=== PATIENT | female | born 1955 | race Caucasian/White ===

== ENCOUNTER 2020-12-19 06:09 | Inpatient (IN) | payer OTHER ==
[~2020-12-19] VITALS: Ht 165.1 cm; Wt 61.4 kg
[2020-12-19] MEDS ORDERED: DIPHENHYDRAMINE 50 MG/ML, 1ML IVPush ONE (06:30)
[2020-12-19] MEDS ORDERED: SODIUM CHLORIDE FLUSH 10ML SYR IVF ONE (06:30)
[2020-12-19] MEDS ORDERED: EPINEPHRINE 1 MG/ML, 1ML IM ONE (06:30)
[2020-12-19] MEDS ORDERED: methylPREDNISolone SOD SUCC 125 MG/2 ML IVPush ONE (06:30)
[2020-12-19] MEDS ORDERED: FAMOTIDINE 20 MG/2 ML IVPush ONE (06:30)
[2020-12-19] MEDS ORDERED: EPINEPHRINE 1 MG/ML, 1ML ONE (06:34)
[2020-12-19] MEDS ORDERED: FAMOTIDINE 20 MG/2 ML ONE (06:34)
[2020-12-19] MEDS ORDERED: DIPHENHYDRAMINE 50 MG/ML, 1ML ONE ×2 (06:34→16:35)
[2020-12-19] MEDS ORDERED: methylPREDNISolone SOD SUCC 125 MG/2 ML ONE ×3 (06:34→20:05)
--- NOTE | 2020-12-19 06:45 | NUR ---
REPORT FROM SUJIT BAEZ
--- NOTE | 2020-12-19 06:45 | NUR ---
ERP AT BS
--- NOTE | 2020-12-19 06:52 | NUR ---
report to Shine BECKETT
--- NOTE | 2020-12-19 07:10 | NUR ---
PT MOVED TO TR02 TO BE IN VIEW OF ERP. PT STATES SHE FEELS SOME SWELLING HAS DECREASED BUT STILL HARD TO TALK. DARLENE. LAB AT BS
[2020-12-19 07:23] LABS: BASOPHILS % (AUTO) 1 % (0-1); EOSINOPHILS % (AUTO) 2 % (1-7); LYMPHOCYTES % (AUTO) 28 % (22-44); MEAN CORPUSCULAR HEMOGLOBIN 37.1 pg (27.0-34.8); MEAN PLATELET VOLUME 6.9 fL (7.4-10.4); MONOCYTES % (AUTO) 10 % (2-9); NEUTROPHILS % (AUTO) 59 % (42-75); PLATELET COUNT 340 x10^3/uL (130-400); RED BLOOD COUNT 3.28 x10^6/uL (3.82-5.3); RED CELL DISTRIBUTION WIDTH 12.5 % (9.6-15.2)
[2020-12-19] MEDS ORDERED: ETOMIDATE 20 MG/10 ML IVPush ONE (07:30)
[2020-12-19] MEDS ORDERED: SUCCINYLCHOLINE 20 MG/ML, 10ML IVPush ONE (07:30)
[2020-12-19 07:32] LABS: ALBUMIN 3.7 g/dL (3.4-5.0); ANION GAP 10 mmol/L (5-15); CALCIUM 9.2 mg/dL (8.5-10.1); CHLORIDE 98 mmol/L (98-107); CREATININE 1.05 mg/dL (0.55-1.02)
[2020-12-19] MEDS ORDERED: VECURONIUM 10 MG IVPush ONE (08:00)
[2020-12-19] MEDS: SODIUM CHLORIDE 0.9% 1,000 ML IV SCH ×2 (08:00→18:18)
[2020-12-19] MEDS ORDERED: POLYETHYLENE GLYCOL 17 GM PACKET PO PRN (08:00)
[2020-12-19] MEDS ORDERED: ACETAMINOPHEN 325 MG TABLET PO PRN (08:00)
[2020-12-19] MEDS ORDERED: morphine SULFATE 10 MG/ML, 1ML IVPush PRN (08:00)
[2020-12-19] MEDS ORDERED: PROPOFOL 100 ML IV PRN (08:00)
[2020-12-19] MEDS ORDERED: MIDAZOLAM 1 MG/ML, 5ML IVPush ONE (08:00)
[2020-12-19] MEDS ORDERED: BISACODYL 10 MG SUPP PR PRN (08:00)
[2020-12-19] MEDS ORDERED: LABETALOL 5MG/ML, 20ML IVPush PRN (08:00)
[2020-12-19] MEDS ORDERED: LORazepam 2 MG/ML, 1ML IVPush PRN (08:00)
[2020-12-19] MEDS ORDERED: ONDANSETRON 2MG/ML, 2ML IVPush PRN (08:00)
[2020-12-19] MEDS: methylPREDNISolone SOD SUCC 125 MG/2 ML IVPush SCH ×3 (08:00→20:07)
[2020-12-19 08:31] VITALS: BP 116/70
[2020-12-19] MEDS ORDERED: LORazepam 2 MG/ML, 1ML ONE ×2 (08:42→10:36)
[2020-12-19 08:46] VITALS: BP 133/90
--- NOTE | 2020-12-19 08:50 | NUR ---
TIME INSERT AT 0745: PT INTUBATED BY MD BIRMINGHAM RELATED TO ANGIOEDEMA BY LISINOPRIL. TONGUE SWOLLEN, PT AIRWAY COMPRIMISED. ANESTESIOLOGIST AT BEDSIDE FOR ASSISTANCE. RT, RN SYED, PROPOFOL GTT READY 100 SUCC 20 ETOMIDATE
--- NOTE | 2020-12-19 08:52 | NUR ---
PANDA INSERTED, RESTRAINTS IN PLACE, FFP INFUSING. SUCTION NEEDED PT TOLERATING SEDATION W PROPOFAL GTT. 10 MG MIDAZOLAM TOTAL 1 MG ATIVAN FOR AGITATION
[2020-12-19] MEDS: FAMOTIDINE 20 MG/2 ML IVPush SCH (09:00)
[2020-12-19] MEDS ORDERED: VECURONIUM 10 MG ONE (09:13)
[2020-12-19 09:15] VITALS: BP 150/88
[2020-12-19] MEDS ORDERED: PROPOFOL 100 ML IV ONE ×2 (09:28→15:27)
[2020-12-19 09:29] VITALS: BP 150/88
--- NOTE | 2020-12-19 09:30 | NUR ---
FFP TRANSFUSION COMPLETE. PT TOLERATED, TONGUE SEVERELY SWOLLEN, SUCTIONING FREQUENTLY NG INSERTED, GREEN BILE SUCTIONED AT INSERTION CONTINUE TO MONITOR. VSS
[2020-12-19] MEDS ORDERED: ENOXAPARIN 40 MG/0.4 ML ONE (09:37)
[2020-12-19] MEDS: ENOXAPARIN 40 MG/0.4 ML SQ SCH (09:42)
--- NOTE | 2020-12-19 09:50 | NUR ---
TIME INSERT AT 0800 VENT SETTING PEAK 5 PEEP 5.0 TIDAL VOLUME 450 40% O2
--- NOTE | 2020-12-19 10:40 | NUR ---
PT AT 50MCG PROPOFOL GTT, PT IS STILL AGITATED IN [facility]. RN CALLED MD, AWAITING CALL BACK TO DISCUSS FURTHER ORDERS. PUSHED ATIVAN PRN FOR AGITATION
--- NOTE | 2020-12-19 10:50 | NUR ---
DISCUSSED W MD JOSÉ TO START VERSED GTT, SINCE PT IS AGITATED WITH PROPOFOL 50 MCG/KG/MIN GTT. PHARMACY TO SEND. VSS.
--- NOTE | 2020-12-19 11:12 | NUR ---
ORAL CARE GIVEN AND SUCTION GIVEN FREQUENTLY, TONGUE IS STILL EDEMETOUS AND PORTRUDING.
[2020-12-19] MEDS: MIDAZOLAM HCL 50 MG in SODIUM CHLORIDE 0.9% 40 ML IV PRN ×2 (11:19→18:16)
--- NOTE | 2020-12-19 11:26 | NUR ---
VERSED GTT STARTED. PT IS TOLERATING AND RELAXING MORE. LESS MOVEMENT IN EXTREMITIES NOTICED. VSS
[2020-12-19] MEDS ORDERED: MORPHINE SULFATE 4 MG/ML, 1ML ONE (11:46)
--- NOTE | 2020-12-19 12:21 | NUR ---
PT TRANSFERRED TO HOSPITAL BED FOR COMFORT W STAFF ASSISTANCE. PT APPEAR COMFORTABLE. LESS AGITATION NOTICED. ORAL CARE PERFORMED, MOISTURIZER APPLIED TO LIPS AND TONGUE. FAMILY VISITED, ANSWERED ALL QUESTIONS AND GAVE EDUCATION.
--- NOTE | 2020-12-19 13:05 | NUR ---
TASK RN: DR VELAZQUEZ AT BEDSIDE, PT ASSESSMENT REVIEWED. SEDATION DISCUSSED, PT CURRENTLY ON PROPOFOL GTT @ 20MCG/KG/MIN AND VERSED 5MG/HR WITH GOOD RESPONSE AND PT APPEARS COMFORTABLE. DR VELAZQUEZ CONFIRMED THAT OK TO USE BOTH PROPOFOL AND VERSED TO KEEP PT COMFORTABLE.
--- NOTE | 2020-12-19 13:46 | NUR ---
SBAR RPT REC'D AND ASSUMED PT CARE. PT RESTING COMFORTABLY ON HOSPITAL BED. TOLLERATING VENT WELL, PIP = 15, SEDATED WITH PROPOFOL AND VERSED NOTED. PT REPOSITIONED TO LEFT SIDE WITH PILLOWS PLACED FOR COMFORT.
--- NOTE | 2020-12-19 14:54 | NUR ---
Q-CARE ORAL CARE COMPLETED AND MOUTH MOISTURIZER APPLIED. PT REPSITINED TO RIGHT SIDE. PT TOLLERATED ACTIVITY WELL, RTN TO SLEEPING WHEN NOT STIMULATED.
--- NOTE | 2020-12-19 15:09 | NUR ---
PROPOFOL GTT WAS D/C BY DR BIRMINGHAM WHEN VERSED GTT ORDERED. PER PRIOR CONVERSATIONS WITH DR VELAZQUEZ, OK TO SEDATE PT WITH BOTH PROPOFOL AND VERSED.
--- NOTE | 2020-12-19 15:29 | NUR ---
SEQUENTIAL STOCKINGS ORDERED.
--- NOTE | 2020-12-19 15:29 | NUR ---
DR VERDIN AT BEDSIDE, SBAR RPT PROVIDED AND QUESTIONS ANSWERED. CLARIFIED PLAN TO SEDATE WITH BOTH PROPOFOL AND VERSED.
[2020-12-19] MEDS ORDERED: PHARMACY MAY ADJ FOR RENAL FX MC SCH (16:00)
[2020-12-19] MEDS ORDERED: LIDOCAINE-MPF 1%, 2ML ENDO PRN (16:00)
[2020-12-19] MEDS ORDERED: FENTANYL PF 100 MCG/2ML ONE ×2 (16:08→23:45)
[2020-12-19] MEDS: FENTANYL PF 100 MCG/2ML IVPush PRN ×3 (16:09→23:47)
--- NOTE | 2020-12-19 16:11 | NUR ---
PT RESTLESS, ELEVATED BP AND HR. PT MED WITH 25MCG FENTANYL AND REPOSITIONED TO RIGHT SIDE. WILL MONITOR FOR EFFECT.
--- NOTE | 2020-12-19 16:19 | NUR ---
ORAL CARE COMPLETED, MOISTURIZER APPLIED TO PROTRUDING TONGUE
--- NOTE | 2020-12-19 16:34 | NUR ---
SEQUENTIAL STOCKINGS PLACED BI-LAT LE AND MACHINE WORKING.
--- NOTE | 2020-12-19 16:34 | NUR ---
PT APPEARS MORE RELAXED, HR, BP AND RR IMPROVED FOLLOWING FENTANYL ADMIN
[2020-12-19] MEDS: DIPHENHYDRAMINE 50 MG/ML, 1ML IVPush SCH (16:36)
[2020-12-19] MEDS: PROPOFOL 100 ML IV PRN (16:37)
--- NOTE | 2020-12-19 17:45 | NUR ---
Al PATTEN. PH [phone] AT BEDSIDE, PT ASSESSMENT, POC DISCUSSED AND QUESTIONS ANSWERED. PT'S BELONGINGS GIVEN TO EARLINE TO TAKE HOME.
--- NOTE | 2020-12-19 19:08 | NUR ---
TASK RN: PT SEEMS COMFORTABLE, VSS. NO NEW INTERVENTIONS AT THIS TIME.
--- NOTE | 2020-12-19 19:23 | NUR ---
MORENOAR RPT TO SUJIT VELASQUEZ
--- NOTE | 2020-12-19 19:55 | NUR ---
PT RESTING ON HOSPITAL BED. ALL LINES IN PLACES, NO DISTRESS. ORAL CARE PROVIDED BY RT
--- NOTE | 2020-12-19 19:57 | NUR ---
PT REPOSITIONED ONTO RIGHT SIDE
--- NOTE | 2020-12-19 22:41 | NUR ---
PT RESTING ON HOSPITAL BED. PT REPOSITIONS HERSELF FREQUENTLY. VSS.
--- NOTE | 2020-12-19 23:41 | NUR ---
PT WAKING UP FREQUENTLY. PULLING AT PANDA/IV LINES, TRYING TO REMOVE RESTRAINTS. INCREASED PROPOFOL AND VERSED.
[2020-12-20] MEDS ORDERED: MIDAZOLAM 1 MG/ML, 5ML ONE (00:43)
[2020-12-20] MEDS ORDERED: ETOMIDATE 20 MG/10 ML ONE (00:43)
[2020-12-20] MEDS ORDERED: SUCCINYLCHOLINE 20 MG/ML, 10ML ONE (00:43)
[2020-12-20] MEDS ORDERED: PROPOFOL 10 MG/ML, 100ML IV ONE (00:43)
--- NOTE | 2020-12-20 00:44 | NUR ---
pt tolerating fentanyl very well. has not woken up or pulled at lines since I gave 50mcg ivp
[2020-12-20] MEDS: FENTANYL PF 100 MCG/2ML IVPush PRN ×7 (02:12→23:35)
[2020-12-20] MEDS ORDERED: PROPOFOL 100 ML IV ONE ×4 (02:15→23:28)
--- NOTE | 2020-12-20 02:23 | NUR ---
TASK RN: PT RESTING IN [facility], ADEQUATELY SEDATED W PROPOFOL AND VERSED GTT. BP/SPO2/ECG MONITORING IN PLACE. VENTILATED, SPO2 >90%. NORMOTENSIVE; NSR ON MONITOR. NOTABLE ORAL EDEMA. BUE SOFT RESTRAINTS IN PLACE WITH GOOD DISTAL CAP REFILL.
--- NOTE | 2020-12-20 04:11 | NUR ---
PT RESTING QUIETLY ON HOSPITAL BED. ALL LINES IN PLACE. VSS.
[2020-12-20] MEDS ORDERED: methylPREDNISolone SOD SUCC 125 MG/2 ML ONE ×4 (04:19→20:11)
[2020-12-20] MEDS: methylPREDNISolone SOD SUCC 125 MG/2 ML IVPush SCH ×4 (04:22→20:13)
[2020-12-20] MEDS: SODIUM CHLORIDE 0.9% 1,000 ML IV SCH (04:22)
--- NOTE | 2020-12-20 04:30 | NUR ---
pt repositioned to opposite side because pt has been repositioning herself less.
[2020-12-20 05:39] LABS: BASOPHILS % (AUTO) 0 % (0-1); EOSINOPHILS % (AUTO) 0 % (1-7); LYMPHOCYTES % (AUTO) 8 % (22-44); MEAN CORPUSCULAR HEMOGLOBIN 37.4 pg (27.0-34.8); MEAN PLATELET VOLUME 7.3 fL (7.4-10.4); MONOCYTES % (AUTO) 3 % (2-9); NEUTROPHILS % (AUTO) 89 % (42-75); PLATELET COUNT 297 x10^3/uL (130-400); RED BLOOD COUNT 3.15 x10^6/uL (3.82-5.3); RED CELL DISTRIBUTION WIDTH 12.8 % (9.6-15.2)
[2020-12-20 05:42] LABS: CHLORIDE 100 mmol/L (98-107)
[2020-12-20 05:51] LABS: ALANINE AMINOTRANSFERASE 36 U/L (12-78); ALBUMIN 2.9 g/dL (3.4-5.0); ALKALINE PHOSPHATASE 56 U/L (45-117); ANION GAP 8 mmol/L (5-15); BILIRUBIN,TOTAL 0.6 mg/dL (0.2-1.0); CALCIUM 7.8 mg/dL (8.5-10.1); CREATININE 0.55 mg/dL (0.55-1.02); TOTAL PROTEIN 6.2 g/dL (6.4-8.2)
--- NOTE | 2020-12-20 06:57 | NUR ---
report to wilfred briceno
--- NOTE | 2020-12-20 07:21 | NUR ---
TOOK REPORT FROM KEVIN Fagan RN, ASSUME CARE AT THIS TIME. PT CALM IN BED IN GOWN WITH CONTINUOUS IT INFRASTRUCTURE ENGINEER, SPO2, BP Q 1 H, NG IN PLACE ON LOW CONT SUCTION, 7.5 EET AT 23 AT THE LIP. 20G IV R WRIST/ 20G L AC ASSESSED. PANDA CATH IN PLACE. NO URINE OUTPUT FROM 0700 TODAY. VENT IS 30% PEEP 5, Tv450. SKIN INTACT. TOUNGE SWELLING HAS DECREASED PER KEVIN BECKETT. NAD
[2020-12-20] MEDS ORDERED: MAGNESIUM SULFATE PMX 2GM/50ML 50 ML IV ONE (07:30)
--- NOTE | 2020-12-20 07:33 | NUR ---
PHARMACY-NURSING COMMUNICATION FORM SENT FOR MORE VERSED
--- NOTE | 2020-12-20 07:33 | NUR ---
RIGHT AND LEFT WRIST RESTRAINTS ASSESSED, SKIN INTACT, GOOD PULSE, ROM. SEE PAPER CHARTING FOR MEDICAL TREATMENT RESTRAINTS RECORD
--- NOTE | 2020-12-20 07:41 | NUR ---
PARM COMMUNICATION FORM SENT FOR MEDS
[2020-12-20] MEDS ORDERED: MAGNESIUM SULFATE PMX 2GM/50ML 50 ML ONE (07:43)
[2020-12-20] MEDS ORDERED: POTASSIUM CHLORIDE 20 MEQ PACKET PO ONE (07:49)
[2020-12-20] MEDS: SENNA/DOCUSATE TABLET PO SCH ×2 (08:33→09:22)
[2020-12-20] MEDS ORDERED: ENOXAPARIN 40 MG/0.4 ML ONE (08:37)
[2020-12-20] MEDS ORDERED: DIPHENHYDRAMINE 50 MG/ML, 1ML ONE ×2 (08:37→16:47)
[2020-12-20] MEDS ORDERED: methylPREDNISolone SOD SUCC 40 MG/ML ONE (08:37)
[2020-12-20] MEDS: DIPHENHYDRAMINE 50 MG/ML, 1ML IVPush SCH ×2 (08:40→16:49)
[2020-12-20] MEDS: ENOXAPARIN 40 MG/0.4 ML SQ SCH (08:40)
[2020-12-20] MEDS ORDERED: FENTANYL PF 100 MCG/2ML ONE ×4 (09:17→23:31)
--- NOTE | 2020-12-20 09:20 | NUR ---
MD VERDIN AT BEDSIDE FOR A LEAK TEST, NO LEAK AT THIS TIME. MD VERDIN WOULD LIKE TO CONTINUE INTUBATION UNTILL TOUNGE SWELLING GOES DOWN. PT AGITATED AFTER TEST, 50 OF FENT GIVEN PER ORDER.
[2020-12-20] MEDS ORDERED: FAMOTIDINE 20 MG/2 ML ONE (09:34)
[2020-12-20] MEDS: POTASSIUM CHLORIDE 20 MEQ, MAGNESIUM SULFATE 1 GM, THIAMINE 200 MG, FOLIC ACID 1 MG, MV... IV SCH (09:38)
[2020-12-20] MEDS: FAMOTIDINE 20 MG/2 ML IVPush SCH (09:39)
--- NOTE | 2020-12-20 10:59 | NUR ---
BEDSIDE REPORT FROM AMBROSE RN. PT APPEARS COMFORTABLE, REPOSITIONED WITH PILLOWS ON RIGHT AND LEFT SIDE.VSS.
--- NOTE | 2020-12-20 12:07 | NUR ---
VITALS REMAIN STABLE, PT REMAINS SEDATED RESTING COMFORTABLY, NO NEW INTERVENTIONS AT THIS TIME.
--- NOTE | 2020-12-20 12:17 | NUR ---
PT BECAME RESTLESS, MEDICATED WITH 25MCG FENTANYL, WILL CONTINUE TO MONITOR.
--- NOTE | 2020-12-20 12:22 | NUR ---
ORAL SUCTION AND CARE PROVIDED, PT APPEARS COMFORTABLE AFTER FENTANYL ADMINISTRATION. VSS.
--- NOTE | 2020-12-20 12:40 | NUR ---
PREVOLON BOOTS APPLIED TO PREVENT FOOT DROP PER ORDER.
--- NOTE | 2020-12-20 12:58 | NUR ---
PT WAKING UP AND REPOSITIONING. INCREASED PROPOFOL PER PROTOCOL.
--- NOTE | 2020-12-20 13:05 | NUR ---
DR. VELAZQUEZ AT BEDSIDE FOR EVAL. NOTED TONGUE SWELLING HAS DECREASED.
--- NOTE | 2020-12-20 13:37 | NUR ---
PT RESTLESS AND AWAKE, INCREASED VERSED AND GAVE 25MCG FENTANYL.
--- NOTE | 2020-12-20 14:16 | NUR ---
PT NOW APPEARS MORE COMFORTABLE AFTER INCREASING VERSED. EARLINE, PT'S FRIEND AT BEDSIDE.
--- NOTE | 2020-12-20 14:42 | NUR ---
PT'S FRIEND EARLINE LEFT PT'S CELL PHONE, FOR PT TO HAVE AND USE ONCE SHE IS EXTUBATED. CELL PHONE LABELED WITH PT'S STICKER AND PLACED IN PT'S BELONGINGS BAG, SET AT BEDSIDE.
--- NOTE | 2020-12-20 15:49 | NUR ---
PT KICKED OFF BLANKETS AND PREVOLON BOOTS DURING REPOSITIONING. GRIMACING, MEDICATED WITH 25MCG FENTANYL PER ORDER.
--- NOTE | 2020-12-20 16:30 | NUR ---
PT APPEARS COMFORTABLE WITH CURRENT SEDATION SETTINGS. VITALS REMAIN STABLE.
--- NOTE | 2020-12-20 16:55 | NUR ---
PT BECAME RESTLESS AND TRYING TO PULL LINES AND PANDA, PROPOFOL INCREASED.
--- NOTE | 2020-12-20 17:39 | NUR ---
Break RN note: Pt positioned for comfort in bed with pillow between her knees. Pt's friend at bedside for visit. Pt appears comfortable, NADN.
--- NOTE | 2020-12-20 18:35 | NUR ---
RT AT BEDSIDE, PT REMAINS SEDATED TOLERATING SUCTION. VITALS REMAIN STABLE.
[2020-12-20] MEDS: MIDAZOLAM HCL 50 MG in SODIUM CHLORIDE 0.9% 40 ML IV PRN (19:23)
[2020-12-20] MEDS: PROPOFOL 100 ML IV PRN ×2 (19:24→23:35)
--- NOTE | 2020-12-20 20:00 | NUR ---
PT IS RESTLESS TRYING TO PULL PANDA. MEDICATED WITH FENTANYL PER JUN.
--- NOTE | 2020-12-20 21:04 | NUR ---
PT APPEARS RELAXED AND COMFORTABLE AT THIS TIME. WILL CONTINUE TO MONITOR.
--- NOTE | 2020-12-20 22:21 | NUR ---
PT RESTING COMFORTABLY, VSS.
--- NOTE | 2020-12-20 22:54 | NUR ---
REPORT TO JOANNA BECKETT.
--- NOTE | 2020-12-20 22:55 | NUR ---
Report received from SUJIT Rausch. This RN to assume care.
--- NOTE | 2020-12-20 23:41 | NUR ---
Patient moving around; medicated patient per mar.
--- NOTE | 2020-12-21 01:00 | NUR ---
Patient IV not working. D/c and started a new one.
--- NOTE | 2020-12-21 01:09 | NUR ---
Break RN; care assumed for break. Pt resting quietly. VS updated.
[2020-12-21] MEDS: MIDAZOLAM HCL 50 MG in SODIUM CHLORIDE 0.9% 40 ML IV PRN (01:43)
[2020-12-21] MEDS ORDERED: methylPREDNISolone SOD SUCC 125 MG/2 ML ONE ×2 (02:11→08:00)
[2020-12-21] MEDS ORDERED: FENTANYL PF 100 MCG/2ML ONE ×2 (02:13→05:46)
[2020-12-21] MEDS: FENTANYL PF 100 MCG/2ML IVPush PRN ×2 (02:15→05:51)
[2020-12-21] MEDS: methylPREDNISolone SOD SUCC 125 MG/2 ML IVPush SCH ×3 (02:15→16:44)
--- NOTE | 2020-12-21 02:15 | NUR ---
Patient waking up and moving extremities. Medicated patient per jun.
[2020-12-21] MEDS ORDERED: PROPOFOL 100 ML IV ONE (05:45)
--- NOTE | 2020-12-21 05:50 | NUR ---
Patient waking up and moving extremities. Medicated patient per jun.
[2020-12-21] MEDS: PROPOFOL 100 ML IV PRN (05:52)
[2020-12-21 06:38] LABS: BASOPHILS % (AUTO) 0 % (0-1); EOSINOPHILS % (AUTO) 0 % (1-7); LYMPHOCYTES % (AUTO) 4 % (22-44); MEAN CORPUSCULAR HEMOGLOBIN 37.3 pg (27.0-34.8); MEAN CORPUSCULAR HGB CONC 34.6 g/dL (32.4-35.8); MEAN PLATELET VOLUME 7.6 fL (7.4-10.4); MONOCYTES % (AUTO) 2 % (2-9); NEUTROPHILS % (AUTO) 94 % (42-75); PLATELET COUNT 331 x10^3/uL (130-400); RED BLOOD COUNT 2.94 x10^6/uL (3.82-5.3); RED CELL DISTRIBUTION WIDTH 12.8 % (9.6-15.2)
--- NOTE | 2020-12-21 07:04 | NUR ---
REPORT FROM JOANNA BECKETT.
[2020-12-21] MEDS ORDERED: ENOXAPARIN 40 MG/0.4 ML ONE (08:00)
[2020-12-21] MEDS ORDERED: DIPHENHYDRAMINE 50 MG/ML, 1ML ONE (08:00)
--- NOTE | 2020-12-21 08:00 | NUR ---
Pt repositioned for comfort. VSS.
[2020-12-21] MEDS: ENOXAPARIN 40 MG/0.4 ML SQ SCH (08:02)
[2020-12-21] MEDS: DIPHENHYDRAMINE 50 MG/ML, 1ML IVPush SCH (08:02)
[2020-12-21] MEDS ORDERED: FAMOTIDINE 20 MG/2 ML ONE (08:46)
[2020-12-21] MEDS: POTASSIUM CHLORIDE 20 MEQ, MAGNESIUM SULFATE 1 GM, THIAMINE 200 MG, FOLIC ACID 1 MG, MV... IV SCH (08:52)
[2020-12-21] MEDS: FAMOTIDINE 20 MG/2 ML IVPush SCH ×2 (08:52→19:49)
--- NOTE | 2020-12-21 08:53 | NUR ---
Dr. Cardenas & Dr Lopez at bedside for eval. per med order versed stopped to assess to extubation.
[2020-12-21] MEDS: SENNA/DOCUSATE TABLET PO SCH (09:00)
--- NOTE | 2020-12-21 10:07 | NUR ---
DR Hough at bedside for extubation. pt tolerated well
--- NOTE | 2020-12-21 11:22 | NUR ---
PT RESTING IN BED, CALL LIGHT IN REACH. vss
[2020-12-21] MEDS ORDERED: LORazepam 1MG TABLET PO PRN ×2 (11:30)
[2020-12-21] MEDS ORDERED: LORazepam 2 MG/ML, 1ML IV PRN ×3 (11:30)
--- NOTE | 2020-12-21 13:17 | NUR ---
Pt resting in bed, call light in reach. VSS.
[2020-12-21] MEDS ORDERED: LABETALOL 5MG/ML, 20ML ONE (13:42)
--- NOTE | 2020-12-21 13:45 | NUR ---
Tolerated swallowing, meal tray ordered.
--- NOTE | 2020-12-21 14:13 | NUR ---
Pt to be admitted to [facility], room 353. Report called to juarez BECKETT.
[2020-12-21 16:23] VITALS: BP 164/82
[2020-12-21] MEDS: METOPROLOL TARTRATE 25 MG TAB PO SCH (16:55)
[2020-12-21 18:51] VITALS: BP 168/92
[2020-12-21] MEDS: THIAMINE 100MG TABLET PO SCH (19:49)
[2020-12-21] MEDS: LORazepam 0.5MG TABLET PO PRN (20:02)
[2020-12-21] MEDS: OXYcodone IR 5MG TABLET PO PRN (21:32)
[2020-12-22 00:55] VITALS: BP 149/76
[2020-12-22 05:21] VITALS: BP 167/84
[2020-12-22] MEDS: METOPROLOL TARTRATE 25 MG TAB PO SCH (05:22)
[2020-12-22 06:12] LABS: BASOPHILS % (AUTO) 0 % (0-1); EOSINOPHILS % (AUTO) 0 % (1-7); LYMPHOCYTES % (AUTO) 14 % (22-44); MEAN CORPUSCULAR HEMOGLOBIN 37.3 pg (27.0-34.8); MEAN CORPUSCULAR HGB CONC 34.7 g/dL (32.4-35.8); MEAN PLATELET VOLUME 7.8 fL (7.4-10.4); MONOCYTES % (AUTO) 6 % (2-9); NEUTROPHILS % (AUTO) 80 % (42-75); PLATELET COUNT 326 x10^3/uL (130-400); RED BLOOD COUNT 3.08 x10^6/uL (3.82-5.3); RED CELL DISTRIBUTION WIDTH 12.8 % (9.6-15.2)
[2020-12-22 06:53] VITALS: BP 173/94
[2020-12-22] MEDS: THIAMINE 100MG TABLET PO SCH ×2 (07:50→19:52)
[2020-12-22] MEDS: SENNA/DOCUSATE TABLET PO SCH (07:50)
[2020-12-22] MEDS: methylPREDNISolone SOD SUCC 125 MG/2 ML IVPush SCH ×2 (07:51→17:22)
[2020-12-22] MEDS: ENOXAPARIN 40 MG/0.4 ML SQ SCH (07:54)
[2020-12-22] MEDS: FAMOTIDINE 20 MG/2 ML IVPush SCH ×2 (07:54→19:52)
[2020-12-22] MEDS ORDERED: ALBUTEROL/IPRATROPIUM 2.5MG/0.5MG, 3 ML HHN SCH (08:00)
[2020-12-22] MEDS: ALBUTEROL-IPRATROPIUM MDI INH INH SCH ×3 (08:52→19:54)
[2020-12-22] MEDS ORDERED: BUDESONIDE 0.5 MG/2 ML INHA INH SCH (09:00)
[2020-12-22] MEDS ORDERED: DIAZEPAM 5 MG TABLET PO SCH ×2 (11:30)
[2020-12-22] MEDS: hydrALAzine 20 MG/ML, 1ML IV PRN (11:54)
[2020-12-22] MEDS: OXYcodone IR 5MG TABLET PO PRN ×2 (12:46→19:52)
[2020-12-22] MEDS ORDERED: KETOROLAC 30 MG/1 ML IVPush ONE (13:00)
[2020-12-22] MEDS: AMLODIPINE 10 MG TAB PO SCH (13:06)
[2020-12-22 14:27] VITALS: BP 172/93
[2020-12-22] MEDS ORDERED: LORazepam 0.5MG TABLET PO PRN (15:00)
[2020-12-22] MEDS ORDERED: KETOROLAC 30 MG/1 ML IVPush PRN (15:00)
[2020-12-22] MEDS: LORazepam 0.5MG TABLET PO PRN (15:34)
[2020-12-22 15:53] VITALS: BP 160/80
[2020-12-22] MEDS: METOPROLOL TARTRATE 50 MG TAB PO SCH (17:23)
[2020-12-22 18:11] VITALS: BP 136/76
[2020-12-23 02:05] VITALS: BP 175/93
[2020-12-23] MEDS: OXYcodone IR 5MG TABLET PO PRN ×3 (02:28→16:49)
[2020-12-23] MEDS: ALBUTEROL-IPRATROPIUM MDI INH INH SCH ×3 (02:30→15:24)
[2020-12-23 03:29] VITALS: BP 171/87
[2020-12-23] MEDS: hydrALAzine 20 MG/ML, 1ML IV PRN (03:33)
[2020-12-23 04:27] VITALS: BP 158/85
[2020-12-23 05:45] VITALS: BP 163/91
[2020-12-23 05:50] LABS: BASOPHILS % (AUTO) 0 % (0-1); EOSINOPHILS % (AUTO) 0 % (1-7); LYMPHOCYTES % (AUTO) 17 % (22-44); MEAN CORPUSCULAR HEMOGLOBIN 36.9 pg (27.0-34.8); MEAN CORPUSCULAR HGB CONC 34.3 g/dL (32.4-35.8); MEAN PLATELET VOLUME 7.3 fL (7.4-10.4); MONOCYTES % (AUTO) 6 % (2-9); NEUTROPHILS % (AUTO) 77 % (42-75); PLATELET COUNT 340 x10^3/uL (130-400); RED BLOOD COUNT 3.23 x10^6/uL (3.82-5.3); RED CELL DISTRIBUTION WIDTH 12.8 % (9.6-15.2)
[2020-12-23] MEDS: METOPROLOL TARTRATE 50 MG TAB PO SCH ×2 (05:53→16:48)
[2020-12-23 09:46] VITALS: BP 154/84
[2020-12-23] MEDS: THIAMINE 100MG TABLET PO SCH (10:27)
[2020-12-23] MEDS: AMLODIPINE 10 MG TAB PO SCH (10:27)
[2020-12-23] MEDS: SENNA/DOCUSATE TABLET PO SCH (10:27)
[2020-12-23] MEDS: methylPREDNISolone SOD SUCC 125 MG/2 ML IVPush SCH ×2 (10:27→16:49)
[2020-12-23] MEDS: FAMOTIDINE 20 MG/2 ML IVPush SCH (10:27)
[2020-12-23] MEDS: ENOXAPARIN 40 MG/0.4 ML SQ SCH (10:27)
[2020-12-23] MEDS ORDERED: METO50TA82 PO (10:55)
[2020-12-23] MEDS ORDERED: AMLO-211 PO (10:55)
[2020-12-23] MEDS ORDERED: OXYC5TAB98 PO (10:55)
[2020-12-23] MEDS ORDERED: PRED20TA PO (11:00)
[2020-12-23] MEDS ORDERED: HYDR12.517 PO (11:00)
[2020-12-23 14:18] VITALS: BP 125/73
[2020-12-23] MEDS: LORazepam 0.5MG TABLET PO PRN (16:48)
== END 2020-12-23 17:39 | disposition home or self-care (01) | DRG 208 ==
LOC: ED 09:12 → EDIP 09:23 → 3N 12-21 13:55
PROVIDERS: ADMIT Internal Medicine; ATTEND Family Medicine
PROC: 5A1945Z Respiratory Ventilation, 24-96 Consecutive Hours (ICD-10-PCS; principal; 2020-12-19)
PROC: 0BH17EZ Insertion of Endotracheal Airway into Trachea, Via Natural or Artificial Opening (ICD-10-PCS; 2020-12-19)
PROC: 30233M1 Transfusion of Nonautologous Plasma Cryoprecipitate into Peripheral Vein, Percutaneous Approach (ICD-10-PCS; 2020-12-19)
DX: J96.01 Acute respiratory failure with hypoxia (principal); E87.1 Hypo-osmolality and hyponatremia; Z99.11 Dependence on respirator [ventilator] status; D75.89 Other specified diseases of blood and blood-forming organs; E66.9 Obesity, unspecified; F10.10 Alcohol abuse, uncomplicated; F41.9 Anxiety disorder, unspecified; I10 Essential (primary) hypertension; J45.909 Unspecified asthma, uncomplicated; T46.4X5A Adverse effect of angiotensin-converting-enzyme inhibitors, initial encounter; T78.3XXA Angioneurotic edema, initial encounter; Z68.22 Body mass index [BMI] 22.0-22.9, adult
CPT/HCPCS: 36415; 36600; 71045; 80048; 80053; 82040; 82607; 82803; 83735; 84100; 84443; 84478; 85025; 86850; 86900; 87070; 87205; 93005; 94002; 94003; 99285; G0378; J0171; J1650; J1885; J2250; J2704; J3010; J3411; J3475; J3480; J0330; J0360; J1200; J2060; J2930; J7030; P9017